=== PATIENT | female | born 1980 | race Caucasian/White ===

== ENCOUNTER 2017-11-12 08:01 | Outpatient (CLI) | payer OTHER ==
--- NOTE | 2017-11-12 10:04 | ULT ---
ULTRASOUND ABDOMEN COMPLETE: HISTORY: A 36-year-old female with right upper quadrant abdominal pain. TECHNIQUE: Forbes-scale ultrasound evaluation of the liver, gallbladder, spleen, pancreas, common bile duct, kidne ys, abdominal aorta, and inferior vena cava (IVC). FINDINGS: The gallbladder has normal wall thickness and has no evidence of gallstones or sludge. The hepatic e chogenicity is diffusely increased, consistent with fatty liver. The kidneys have normal echogenicit y, and there is no hydronephrosis. There is no splenomegaly. There is no abdominal aortic aneurysm. No free fluid is identified. The inferior vena cava is visualized. The pancreas is visualized, al though ultrasound is relatively insensitive for pancreatic pathology compared to CT and MRI. There is no biliary dilation. The common duct caliber is 3 mm. IMPRESSION: 1) Hepatic steatosis. 2) Otherwise negative. jn [] POS: CET
== END 2017-11-12 08:02 | disposition home or self-care (01) ==
LOC: SCSULT 08:01
PROVIDERS: ATTEND Internal Medicine Gastroenterology
DX: K76.0 Fatty (change of) liver, not elsewhere classified (principal)
CPT/HCPCS: 76700; 76705